=== PATIENT | female | born 1995 | race Caucasian/White ===

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

== ENCOUNTER 2018-11-24 11:31 | Emergency (ER) | payer OTHER ==
[2018-11-24 11:47] VITALS: BP 120/85; PULSE 70; TEMP 98.1; BMI 26.6
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
== END 2018-11-24 12:48 | disposition home or self-care (01) ==
LOC: JERFT 11:31
PROC: 2W3UXYZ Immobilization of Right Toe using Other Device (ICD-10-PCS; principal; 2018-11-24)
DX: S92.414A Nondisplaced fracture of proximal phalanx of right great toe, initial encounter for closed fracture (principal); W22.8XXA Striking against or struck by other objects, initial encounter; Y93.89 Activity, other specified; Y92.9 Unspecified place or not applicable
CPT/HCPCS: 73660-TC-FY; 99282-25